=== PATIENT | female | born 1930 | race Caucasian/White ===

== ENCOUNTER 2017-01-09 22:22 | Inpatient (IN) | payer OTHER ==
[~2017-01-09] VITALS: Ht 152.4 cm; Wt 84.4 kg
[2017-01-09 22:25] VITALS: BP_SYST 153
[2017-01-09] MEDS ORDERED: NACL 0.9% 1,000 ML IV ONE (22:29)
[2017-01-09] MEDS ORDERED: MORPHINE 4 MG/ML INJ. SYRINGE IVP ONE (22:45)
[2017-01-09] MEDS ORDERED: ONDANSETRON HCL 4 MG/2 ML VIAL IVP ONE (22:45)
[2017-01-09 23:53] LABS: HEMATOCRIT 26.9 % (36-48); HEMOGLOBIN 8.9 g/dL (12.0-16.0); MEAN CORPUSCULAR HEMOGLOBIN 31 pg (27-31); MEAN CORPUSCULAR HGB CONC 33 % (32-36); MEAN CORPUSCULAR VOLUME 95 fL (79.0-98.0); RED BLOOD CELL COUNT(AUTO) 2.85 MIL/uL (4.2-6.2); RED CELL DISTRIBUTION WIDTH 17.4 % (9.0-15.0)
[2017-01-10 00:06] LABS: INR 1.1 (0.8-1.2); PROTHROMBIN TIME 12.2 SECS (9.5-12.5)
[2017-01-10 00:13] LABS: PLATELET COUNT (AUTO) 22 K/uL (130-430); WHITE BLOOD COUNT (AUTO) 37.9 K/uL (4.8-10.8)
[2017-01-10 00:16] LABS: ANION GAP 10 (5-15); CALCIUM 9.2 mg/dL (8.4-11.0); CHLORIDE 104 mmol/L (98-107); CREATININE 1.39 mg/dL (0.55-1.30); GLUCOSE 114 mg/dL (70-99); POTASSIUM 4.4 mmol/L (3.5-5.1); SODIUM SERUM 136 mmol/L (136-145); UREA NITROGEN, BLOOD 14 mg/dL (8-21)
[2017-01-10 00:21] LABS: ALANINE AMINOTRANSFERASE 28 U/L (12-78); ALBUMIN 3.8 g/dL (3.4-4.8); AMYLASE 43 U/L (0-100); ASPARTATE AMINOTRANSFERASE 34 U/L (10-37); LIPASE 111 U/L (73-393); TOTAL BILIRUBIN 0.8 mg/dL (0.0-1.0)
[2017-01-10] MEDS ORDERED: VANCOMYCIN HCL 750 MG in NS 250 ML IV ONE (00:30)
[2017-01-10] MEDS ORDERED: VANCOMYCIN HCL 1000 MG/VIAL IV ONE (01:04)
[2017-01-10 01:30] LABS: ATYPICAL LYMPHOCYTES % 0 % (0-0); BAND % (MANUAL) 13 % (0-6); BASOPHILS % (MANUAL) 0 % (0-2); BLASTS, MANUAL % 12 % (0-0); EOSINOPHILS % (MANUAL) 0 % (0-7); LYMPHOCYTES % (MANUAL) 10 % (20-46); METAMYELOCYTES % 2 % (0-0); MONOCYTES % (MANUAL) 15 % (0-11); MYELOCYTES % 2 % (0-0)
[2017-01-10 02:01] LABS: BILIRUBIN,URINE NEGATIVE (NEGATIVE); BLOOD, URINE TRACE (NEGATIVE); CLARITY/URINE HAZY (CLEAR); COLOR,URINE YELLOW (YELLOW); GLUCOSE,URINE NEGATIVE (NEGATIVE); KETONES,URINE NEGATIVE (NEGATIVE); LEUKOCYTE ESTERASE ,URINE NEGATIVE (NEGATIVE); NITRITE, URINE NEGATIVE (NEGATIVE); PROTEIN URINE TRACE (NEGATIVE); UROBILINOGEN,URINE 0.2 (0.2-1.0)
[2017-01-10 02:21] LABS: BACTERIA,URINE FEW /HPF (None Seen); MUCUS,URINE 1+ /LPF (None Seen); WBC,URINE NONE SEEN /HPF (0-3)
[2017-01-10] MEDS ORDERED: ROPI0.5T PO (02:57)
[2017-01-10] MEDS ORDERED: FURO20TA4 PO (02:57)
[2017-01-10] MEDS ORDERED: ATEN-41 PO (02:57)
[2017-01-10] MEDS ORDERED: METH4TAB3 PO (02:57)
[2017-01-10] MEDS ORDERED: ASPI-1063 PO (02:57)
[2017-01-10] MEDS ORDERED: CICL544C TP (02:57)
[2017-01-10] MEDS ORDERED: HYDR-1189 PO (02:57)
[2017-01-10] MEDS: IPRATROPIUM/ALBUTEROL SULFATE 3 ML AMPUL.NEB INH SCH ×3 (03:00→11:40)
[2017-01-10 03:11] VITALS: BP_SYST 103
[2017-01-10 04:00] VITALS: BP_SYST 139
[2017-01-10] MEDS: HYDROcodone/ACETAMIN 5-325 MG TAB (NORCO/ VICODIN) PO PRN ×3 (05:28→15:52)
[2017-01-10 05:42] VITALS: BP_SYST 103
[2017-01-10 08:30] VITALS: BP_SYST 110
[2017-01-10 08:31] LABS: HEMATOCRIT 24.9 % (36-48); HEMOGLOBIN 8.1 g/dL (12.0-16.0); MEAN CORPUSCULAR HEMOGLOBIN 31 pg (27-31); MEAN CORPUSCULAR HGB CONC 33 % (32-36); MEAN CORPUSCULAR VOLUME 95 fL (79.0-98.0); RED BLOOD CELL COUNT(AUTO) 2.62 MIL/uL (4.2-6.2); RED CELL DISTRIBUTION WIDTH 16.8 % (9.0-15.0)
[2017-01-10 08:50] LABS: PLATELET COUNT (AUTO) 19 K/uL (130-430); WHITE BLOOD COUNT (AUTO) 34.1 K/uL (4.8-10.8)
[2017-01-10] MEDS ORDERED: cefTRIAXone 1 GM VIAL IV SCH (09:00)
[2017-01-10] MEDS: LEVOFLOXACIN 500 MG/D5W 100 ML IV SCH (09:38)
[2017-01-10 11:27] VITALS: BP_SYST 104
[2017-01-10 14:29] LABS: BAND % (MANUAL) 9 % (0-6); LYMPHOCYTES % (MANUAL) 10 % (20-46)
[2017-01-10 14:30] LABS: BASOPHILS % (MANUAL) 0 % (0-2); EOSINOPHILS % (MANUAL) 0 % (0-7); MONOCYTES % (MANUAL) 28 % (0-11)
[2017-01-10 15:28] VITALS: BP_SYST 105
[2017-01-10] MEDS: roPINIRole HCL 0.25 MG ( REQUIP )TABLET PO SCH ×2 (17:40→22:12)
[2017-01-10] MEDS ORDERED: ONDANSETRON HCL 4 MG/2 ML VIAL IVP PRN (18:15)
[2017-01-10] MEDS: VANCOMYCIN HCL 750 MG in NS 250 ML IV SCH (22:13)
[2017-01-10] MEDS: SIMETHICONE 80 MG TAB.CHEW PO SCH (22:13)
[2017-01-11 01:08] VITALS: BP_SYST 118
[2017-01-11 05:04] VITALS: BP_SYST 138
[2017-01-11 07:57] LABS: MEAN CORPUSCULAR HGB CONC 33 % (32-36); RED BLOOD CELL COUNT(AUTO) 2.54 MIL/uL (4.2-6.2); RED CELL DISTRIBUTION WIDTH 17.4 % (9.0-15.0)
[2017-01-11 08:07] LABS: ALANINE AMINOTRANSFERASE 26 U/L (12-78); ALBUMIN 3.4 g/dL (3.4-4.8); ANION GAP 9 (5-15); ASPARTATE AMINOTRANSFERASE 36 U/L (10-37); CALCIUM 9.4 mg/dL (8.4-11.0); CHLORIDE 102 mmol/L (98-107); CREATININE 1.37 mg/dL (0.55-1.30); GLUCOSE 83 mg/dL (70-99); POTASSIUM 4.5 mmol/L (3.5-5.1); SODIUM SERUM 135 mmol/L (136-145); TOTAL BILIRUBIN 0.8 mg/dL (0.0-1.0); TOTAL PROTEIN, SERUM 6.7 g/dL (6.4-8.3); UREA NITROGEN, BLOOD 14 mg/dL (8-21)
[2017-01-11 08:25] LABS: HEMOGLOBIN 8.2 g/dL (12.0-16.0); PLATELET COUNT (AUTO) 21 K/uL (130-430); WHITE BLOOD COUNT (AUTO) 32.5 K/uL (4.8-10.8)
[2017-01-11 08:26] LABS: HEMATOCRIT 24.5 % (36-48); MEAN CORPUSCULAR HEMOGLOBIN 32 pg (27-31); MEAN CORPUSCULAR VOLUME 97 fL (79.0-98.0)
[2017-01-11] MEDS ORDERED: methylPREDNISolone 4 MG TABLET PO SCH (09:00)
[2017-01-11] MEDS: ATENOLOL 25 MG TABLET(TENORMIN) PO SCH (09:00)
[2017-01-11] MEDS: LEVOFLOXACIN 500 MG/D5W 100 ML IV SCH (09:55)
[2017-01-11] MEDS: SIMETHICONE 80 MG TAB.CHEW PO SCH ×4 (09:58→21:21)
[2017-01-11] MEDS: ASPIRIN 81 MG TABLET(ECOTRIN) PO SCH (09:58)
[2017-01-11] MEDS: roPINIRole HCL 0.25 MG ( REQUIP )TABLET PO SCH ×3 (09:58→21:21)
[2017-01-11] MEDS: FUROSEMIDE 20 MG TABLET PO SCH (09:59)
[2017-01-11 10:34] LABS: BAND % (MANUAL) 6 % (0-6); LYMPHOCYTES % (MANUAL) 8 % (20-46); MONOCYTES % (MANUAL) 28 % (0-11)
[2017-01-11 10:35] LABS: BASOPHILS % (MANUAL) 0 % (0-2); EOSINOPHILS % (MANUAL) 0 % (0-7); METAMYELOCYTES % 1 % (0-0)
[2017-01-11 12:34] VITALS: BP_SYST 117
[2017-01-11] MEDS: HYDROcodone/ACETAMIN 5-325 MG TAB (NORCO/ VICODIN) PO PRN ×2 (13:22→21:22)
[2017-01-11 16:03] VITALS: BP_SYST 113
[2017-01-11] MEDS: traMADol HCL HCL 50 MG TABLET (ULTRAM) PO SCH (18:13)
[2017-01-11 20:20] VITALS: BP_SYST 120
[2017-01-11] MEDS: VANCOMYCIN HCL 750 MG in NS 250 ML IV SCH (21:23)
[2017-01-12 01:36] VITALS: BP_SYST 118
[2017-01-12] MEDS: HYDROcodone/ACETAMIN 5-325 MG TAB (NORCO/ VICODIN) PO PRN ×2 (02:07→16:44)
[2017-01-12 04:50] VITALS: BP_SYST 111
[2017-01-12] MEDS: traMADol HCL HCL 50 MG TABLET (ULTRAM) PO SCH ×3 (06:05→14:08)
[2017-01-12 08:11] VITALS: BP_SYST 102
[2017-01-12 08:47] LABS: MEAN CORPUSCULAR HEMOGLOBIN 31 pg (27-31)
[2017-01-12 08:52] LABS: HEMATOCRIT 26.3 % (36-48); HEMOGLOBIN 8.5 g/dL (12.0-16.0); MEAN CORPUSCULAR HGB CONC 32 % (32-36); MEAN CORPUSCULAR VOLUME 95 fL (79.0-98.0); RED BLOOD CELL COUNT(AUTO) 2.77 MIL/uL (4.2-6.2); RED CELL DISTRIBUTION WIDTH 17.3 % (9.0-15.0)
[2017-01-12 08:53] LABS: ANION GAP 8 (5-15); CALCIUM 9.3 mg/dL (8.4-11.0); CHLORIDE 102 mmol/L (98-107); CREATININE 1.56 mg/dL (0.55-1.30); GLUCOSE 136 mg/dL (70-99); POTASSIUM 4.6 mmol/L (3.5-5.1); SODIUM SERUM 136 mmol/L (136-145); UREA NITROGEN, BLOOD 17 mg/dL (8-21)
[2017-01-12 08:56] LABS: WHITE BLOOD COUNT (AUTO) 30.9 K/uL (4.8-10.8)
[2017-01-12 08:57] LABS: PLATELET COUNT (AUTO) 24 K/uL (130-430)
[2017-01-12 08:58] LABS: ALANINE AMINOTRANSFERASE 31 U/L (12-78); ALBUMIN 3.4 g/dL (3.4-4.8); ASPARTATE AMINOTRANSFERASE 38 U/L (10-37); TOTAL BILIRUBIN 0.7 mg/dL (0.0-1.0); TOTAL PROTEIN, SERUM 6.8 g/dL (6.4-8.3)
[2017-01-12] MEDS: LEVOFLOXACIN 500 MG/D5W 100 ML IV SCH (09:16)
[2017-01-12 09:49] LABS: ATYPICAL LYMPHOCYTES % 0 % (0-0); BAND % (MANUAL) 13 % (0-6); BASOPHILS % (MANUAL) 0 % (0-2); EOSINOPHILS % (MANUAL) 0 % (0-7); LYMPHOCYTES % (MANUAL) 6 % (20-46); METAMYELOCYTES % 2 % (0-0); MONOCYTES % (MANUAL) 21 % (0-11)
[2017-01-12] MEDS: roPINIRole HCL 0.25 MG ( REQUIP )TABLET PO SCH ×2 (10:09→16:43)
[2017-01-12] MEDS: SIMETHICONE 80 MG TAB.CHEW PO SCH ×2 (10:09→14:06)
[2017-01-12] MEDS: FUROSEMIDE 20 MG TABLET PO SCH (10:10)
[2017-01-12] MEDS: ATENOLOL 25 MG TABLET(TENORMIN) PO SCH (10:10)
[2017-01-12] MEDS: ASPIRIN 81 MG TABLET(ECOTRIN) PO SCH (10:10)
[2017-01-12 11:29] VITALS: BP_SYST 114
[2017-01-12] MEDS ORDERED: MILK OF MAGNESIA 30 ML UDC PO PRN (12:30)
[2017-01-12] MEDS ORDERED: SENNA 8.8 MG/5 ML UDC PO SCH (12:30)
[2017-01-12 15:05] VITALS: BP_SYST 106
[2017-01-12 15:28] VITALS: BP_SYST 106
[2017-01-13 13:07] LABS: FOLATE (FOLIC ACID) 5.1 ng/mL (>3.0)
[2017-01-13 14:27] LABS: HEPATITIS A AB, IgM Negative (Negative); HEPATITIS B CORE AB, IgM Negative (Negative); HEPATITIS B SURFACE AG Negative (Negative)
[2017-01-13 19:12] LABS: ANTI NUCLEAR AB WITH REFLEX Negative (Negative)
[2017-01-14 11:53] LABS: FERRITIN 232 ng/mL (15-150)
== END 2017-01-12 17:25 | DRG 542 ==
LOC: SED 22:22 → SMU 01-10 02:28
PROVIDERS: ATTEND Internal Medicine Hospice and Palliative Medicine
DX: M48.56XA Collapsed vertebra, not elsewhere classified, lumbar region, initial encounter for fracture (principal); J18.9 Pneumonia, unspecified organism; I10 Essential (primary) hypertension; D69.6 Thrombocytopenia, unspecified; D46.9 Myelodysplastic syndrome, unspecified; K74.60 Unspecified cirrhosis of liver; Z96.653 Presence of artificial knee joint, bilateral; I83.90 Asymptomatic varicose veins of unspecified lower extremity; M19.90 Unspecified osteoarthritis, unspecified site; G89.29 Other chronic pain; M54.5 Low back pain; Z88.2 Allergy status to sulfonamides; Z88.0 Allergy status to penicillin
CPT/HCPCS: 36415; 71010; 71250-TC; 72100-TC; 80053; 81000-TC; 82105; 82150-TC; 82607; 82728; 82746; 83605; 83690-TC; 85007; 85025; 85027; 85044-TC; 85610-TC; 85730-TC; 86038; 86705; 86709; 87040-TC; 87340; 94640; 96365; 96366; 96375; 99291; J1956; J2270; J2405; J3370; J7040; J7050; J7509